=== PATIENT | female | born 1985 ===

== ENCOUNTER 2021-07-16 14:41 | Emergency (ER) | payer MEDICAID ==
[2021-07-16 17:36] VITALS: BP 154/98
== END 2021-07-16 23:40 | disposition left against medical advice (07) ==
LOC: ED 14:41
DX: M25.512 Pain in left shoulder (principal); M54.9 Dorsalgia, unspecified; Z53.21 Procedure and treatment not carried out due to patient leaving prior to being seen by health care provider

== ENCOUNTER 2021-07-25 03:41 | Emergency (ER) | payer MEDICAID ==
--- NOTE | 2021-07-25 08:45 | XRay Report ---
LEFT SHOULDER 3 VIEWS INDICATION / CLINICAL INFORMATION: injury, pain. COMPARISON: None available. FINDINGS: BONES / JOINT(S): No acute fracture or subluxation. No other significant abnormality. SOFT TISSUES: No significant abnormality. ADDITIONAL FINDINGS: None. IMPRESSION: 1. No acute findings. Signer Name: Mikael Gamez MD Signed: 07/25/2021 8:41 AM Workstation Name: [email or web address]
[2021-07-25] MEDS ORDERED: KETOROLAC 10 MG TAB PO ONE (10:14)
[2021-07-25] MEDS ORDERED: CYCLOBENZAPRINE 10 MG TAB PO ONE (10:14)
[2021-07-25] MEDS ORDERED: oxyCODONE /ACETAMINOPHEN 5-325MG TAB PO ONE (10:14)
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
[2021-07-25 11:00] VITALS: BP 124/78
== END 2021-07-25 11:30 | disposition home or self-care (01) ==
LOC: ED 03:41
DX: M25.512 Pain in left shoulder (principal); M54.50 Low back pain, unspecified
CPT/HCPCS: 99283